=== PATIENT | female | born 1945 | race Caucasian/White ===

== ENCOUNTER 2025-01-31 11:50 | Emergency (ER) | payer MEDICARE, BC ==
[~2025-01-31] VITALS: Ht 160 cm; Wt 59.0 kg
[2025-01-31] MEDS ORDERED: TDAP [DIPH/PERTUSSIS/TET] 0.5 ML VIAL IM ONE (14:03)
[2025-01-31] MEDS: TDAP [DIPH/PERTUSSIS/TET] 0.5 ML VIAL IM ONE (14:14)
[2025-01-31 14:17] VITALS: BP 150/78; TEMP 98.6; O2SAT 98
== END 2025-01-31 14:18 | disposition home or self-care (01) ==
LOC: ER 12:04
DX: S01.81XA Laceration without foreign body of other part of head, initial encounter (principal); J32.9 Chronic sinusitis, unspecified; M50.30 Other cervical disc degeneration, unspecified cervical region; W01.0XXA Fall on same level from slipping, tripping and stumbling without subsequent striking against object, initial encounter; Y93.89 Activity, other specified; Y92.89 Other specified places as the place of occurrence of the external cause; Y99.9 Unspecified external cause status
CPT/HCPCS: 70450-TC; 72125-TC; 90715